=== PATIENT | male | born 1940 | race Caucasian/White ===

== ENCOUNTER 2017-04-16 15:58 | Inpatient (IN) | payer MEDICARE, OTHER ==
[~2017-04-16] VITALS: Ht 193 cm; Wt 81.6 kg
--- NOTE | 2017-04-16 16:16 | NUR ---
There was no information about pt's regular medications sent with the pt from the SNF, pt's daughter unable to provide info as well. Pt's daughter stated she will attempt to call her mother and the SNF to obtain information.
[2017-04-16] MEDS ORDERED: VANCOMYCIN IV 1,000 MG in IV DEXTROSE 5% 250 ML IV ONE (16:30)
[2017-04-16] MEDS ORDERED: CEFEPIME HCL 1 G in IV DEXTROSE 5% 50 ML IV ONE (16:30)
[2017-04-16] MEDS ORDERED: METRONIDAZOLE 500 MG/NS 100ML 100 ML IV ONE ×2 (16:30→16:55)
[2017-04-16] MEDS ORDERED: IV NORMAL SALINE 1000 ML BAG IV ONE (16:30)
[2017-04-16] MEDS ORDERED: VANCOMYCIN IV 200 ML ONE (16:55)
[2017-04-16 16:57] LABS: BASOPHILS % (AUTO) 0.2 % (0.0-2.0); EOSINOPHILS % (AUTO) 0.1 % (0.0-7.0); HEMATOCRIT 26.2 % (40-50); HEMOGLOBIN 8.5 G/DL (14.0-18.0); LYMPHOCYTES % (AUTO) 9.2 % (20.5-51.5); MEAN CORPUSCULAR HEMOGLOBIN 29.4 UUG (27.0-31.0); MEAN CORPUSCULAR HGB CONC 33 g/dL (32.0-37.0); MEAN CORPUSCULAR VOLUME 90.3 FL (82.0-92.0); MONOCYTES # (AUTO) 0.9 K/UL (0.1-1.30); MONOCYTES % (AUTO) 4.3 % (0.0-11.0); NEUTROPHILS # (AUTO) 18.7 K/UL (1.8-8.9); NEUTROPHILS % (AUTO) 86.2 % (38.5-71.5); PLATELET COUNT (AUTO) 364 K/UL (150-450)
[2017-04-16 17:10] LABS: WHITE BLOOD COUNT (AUTO) 21.6 K/UL (4.0-11.2)
[2017-04-16 17:20] LABS: ALANINE AMINOTRANSFERASE 40 U/L (16-63); ALKALINE PHOSPHATASE 65 U/L (50-136); ASPARTATE AMINOTRANSFERASE 17 U/L (15-37); BILIRUBIN,DIRECT 0.1 mg/dL (0.0-0.2); BILIRUBIN,TOTAL 0.4 mg/dL (0.2-1.0); CARBON DIOXIDE 19 mmol/L (21-32); CHLORIDE 103 mmol/L (98-107); CREATININE 2.9 mg/dL (0.6-1.3); POTASSIUM 5.1 mmol/L (3.5-5.1); TOTAL PROTEIN, SERUM 5.9 g/dL (6.4-8.2)
[2017-04-16 17:25] LABS: GLUCOSE 558 mg/dL (74-106); UREA NITROGEN, BLOOD 97 mg/dL (7-18)
--- NOTE | 2017-04-16 17:29 | NUR ---
Call placed to [facility] ( ) to obtain information about pt's regular medications, spoke with pt's primary nurse and requested she fax a current med list.
[2017-04-16 17:39] LABS: BAND % (MANUAL) 9 % (0-10); LYMPHOCYTES % (MANUAL) 8 % (20-40); MONOCYTES % (MANUAL) 7 % (2-10); NEUTROPHILS % (MANUAL) 76 % (42-75)
--- NOTE | 2017-04-16 17:45 | NUR ---
Patient is now verbal, eyes tracking, still disoriented to name, place or time. Patient is also unable to recognize his daughter at this time. MD notified.
[2017-04-16] MEDS ORDERED: GENTAMICIN SULFATE 20 MG/2 ML VIAL IV ONE (18:00)
[2017-04-16] MEDS ORDERED: GENTAMICIN SULFATE IV ONE (18:00)
[2017-04-16] MEDS ORDERED: NORMAL SALINE IV ONE (18:00)
[2017-04-16 18:09] LABS: *BLOOD, URINE 2+ (NEGATIVE); *CLARITY,URINE CLOUDY (CLEAR); *COLOR,URINE YELLOW (YELLOW); *KETONES,URINE NEGATIVE (NEGATIVE); NITRITE, URINE NEGATIVE (NEGATIVE); PH,URINE 7.5 (5.0-8.0); UGLUCOSE NEGATIVE (NEGATIVE)
[2017-04-16] MEDS ORDERED: POLY17PO4 PO (18:13)
[2017-04-16] MEDS ORDERED: BLOO-144 MC (18:13)
[2017-04-16] MEDS ORDERED: TAMS0.4C34 PO (18:13)
[2017-04-16] MEDS ORDERED: SENN-167 PO (18:13)
[2017-04-16] MEDS ORDERED: MULT1TAB11 PO (18:13)
[2017-04-16] MEDS ORDERED: CRAN450C PO (18:13)
[2017-04-16] MEDS ORDERED: QUET25TA PO (18:13)
[2017-04-16] MEDS ORDERED: INSU100V7 SQ (18:13)
[2017-04-16] MEDS ORDERED: WARF5TAB6 PO (18:13)
[2017-04-16] MEDS ORDERED: TRAZ-144 PO (18:13)
[2017-04-16] MEDS ORDERED: FURO-152 PO (18:13)
[2017-04-16] MEDS ORDERED: PRAV20TA4 PO (18:13)
[2017-04-16] MEDS ORDERED: FINA5TAB11 PO (18:13)
[2017-04-16] MEDS ORDERED: CHOL200026 PO (18:13)
[2017-04-16] MEDS ORDERED: METO25TA6 PO (18:13)
[2017-04-16] MEDS ORDERED: MAGN400O6 PO (18:14)
[2017-04-16] MEDS ORDERED: TRAM50TA2 PO (18:14)
[2017-04-16] MEDS ORDERED: CALAZIME TP (18:14)
[2017-04-16] MEDS ORDERED: COLL30OI TOP (18:14)
[2017-04-16] MEDS ORDERED: ACET325C PO (18:14)
[2017-04-16] MEDS ORDERED: DOCU-141 PO (18:14)
[2017-04-16] MEDS ORDERED: BISA10SU12 RC (18:14)
[2017-04-16] MEDS ORDERED: ACET325T53 PO (18:14)
[2017-04-16 18:35] LABS: *BILIRUBIN,URIN NEGATIVE (NEGATIVE); *PROTEIN,URINE 3+ (NEGATIVE)
[2017-04-16 18:36] LABS: LEUKOCYTE ESTERASE ,URINE 2+ (NEGATIVE)
[2017-04-16 18:38] LABS: BACTERIA,URINE MANY /HPF (NONE SEEN); TRIPLE PHOSPHATE CRYSTAL,UR MODERATE /HPF (NONE SEEN); WBC,URINE 80-100 /HPF (0-3)
--- NOTE | 2017-04-16 18:40 | NUR ---
Patient is resting comfortably on gurney with eyes closed, easily arousable, patient says "Hi" back when greeted but still confuse@this time, REYNALDO, respiration:easy, daughter is at bedside
--- NOTE | 2017-04-16 19:08 | NUR ---
IVF bolus is done, MD aware. IV Vanco is still infusing@right forearm, pending blood draw for repeat lactic acid, type & screen & accucheck, endorsed to MIREYA Breaux accordingly
--- NOTE | 2017-04-16 20:05 | NUR ---
Pt. admitted to [facility], under care of Dr. Story Belongs List completed
[2017-04-16 20:30] VITALS: BP 91/52
--- NOTE | 2017-04-16 21:00 | NUR ---
In from ER via gurney, 77 y/o male patient admitted to [facility] w/ Dx. Septic Shock. Daughter in room provided patient's information. Initial assessment done, patient coherent & slightly restless. Placed on site monitor- shows sinus tach 105-110, afebrile but BP low 91/52. Admission orders initiated by Dr. Story. Will continue to monitor.
[2017-04-16] MEDS ORDERED: ACETAMINOPHEN 650 MG SUPP.RECT RC PRN (21:30)
[2017-04-16] MEDS ORDERED: PHYTONADIONE 10 MG/1 ML AMPUL SQ ONE (21:30)
[2017-04-16] MEDS ORDERED: DEXTROSE 50% 50 ML DISP.SYRIN IV PRN (21:30)
[2017-04-16] MEDS: IV NS 1000 ML 1,000 ML IV PRN (21:44)
[2017-04-16] MEDS: PIPERACILLIN/TAZOBACTAM/D5W 2.25 G in PREMIXED 1 EACH IV SCH (21:54)
--- NOTE | 2017-04-16 22:00 | NUR ---
Zosyn 2.25 gm IVPB started as ordered. Patient calm at this time.
[2017-04-16] MEDS ORDERED: PIPERACILLIN/TAZO 2.25 GM VIAL ONE ×2 (22:03→23:25)
[2017-04-16] MEDS: INSULIN DETEMIR 300 UNIT/3 ML CARTRIDGE SQ SCH (22:30)
[2017-04-16] MEDS: Z GUARD REMEDY PASTE 57 GM TUBE TOP SCH (22:31)
[2017-04-16 23:20] VITALS: BP 77/43
--- NOTE | 2017-04-16 23:20 | NUR ---
Restlessness noted BP 77/43, O2Sat 67% on 4 Liter nasally. Closely monitored. Called Rapid response for further assessment.
[2017-04-16 23:30] VITALS: BP 67/26
--- NOTE | 2017-04-16 23:30 | NUR ---
Unable to get O2Sat, Current BP 67/26. Dr. Story notified.
--- NOTE | 2017-04-16 23:45 | NUR ---
Transferred to CCU per MD order.
[2017-04-16 23:55] VITALS: BP 94/55
[2017-04-16] MEDS: PHENYLEPHRINE IV 20 MG in IV DEXTROSE 5% 250 ML IV PRN (23:55)
--- NOTE | 2017-04-16 23:55 | NUR ---
RECEIVED PT TRANSFERED FROM -218 VIA BED W/ LOW BP., HUNG NEOSYNEPHRINE DRIP @ 100MCQ/MIN ORDERED ON LAC IV SITE.ON O2 @ 100% NRM W/ O2 SAT OF 100%. C-SCOPE ST W/ RARE PVCS. SOFT RESTRAINT APPLIED, PT PULLING OUT IVS & MEDICAL EQUIPMENT. WATCHED PT CLOSELY.
--- NOTE | 2017-04-16 23:55 | NUR ---
DAM TENDER ASSISTANT CALLED OVERHEAD, UPON ARRIVAL PT WAS PLACED ON A NON-REBREATHER WITH 100% FIO2. PT WAS TRANSFERRED TO CCU ON NON REBREATHER 100%. PT CURRENTLY IS ON NON-REBREATHER AT 100% FIO2, SP02 IS 100%. WILL CONTINUE TO MONITOR PT AND TITRATE O2 ACCORDINGLY.
[2017-04-17] VITALS (69 sets, daily range): BP systolic 78–139; BP diastolic 39–79
[2017-04-17] MEDS ORDERED: PHENYLEPHRINE 10 MG/1 ML VIAL ONE ×3 (00:01→06:11)
--- NOTE | 2017-04-17 00:10 | NUR ---
NOTIFIED DR Samuel JAIN RE: ACCUCHJOSE ROBERTO BLOOD SUGAR-[id number] W/ ORDER TO CONT. THE SLIDING SCALE COVERAGE ORDERED. Addendum: 04/17/17 at 0806 by PAT WILLIS RN -[phone].
[2017-04-17] MEDS: PHENYLEPHRINE IV 20 MG in IV DEXTROSE 5% 250 ML IV PRN ×5 (00:17→19:33)
[2017-04-17] MEDS: BLOOD SUGAR DIAGNOSTIC 1 EACH STRIP VI SCH ×5 (00:28→23:42)
[2017-04-17] MEDS: INSULIN REGULAR, HUMAN 300 UNIT/3 ML VIAL SQ PRN ×5 (00:47→23:44)
[2017-04-17] MEDS ORDERED: INSULIN REGULAR, HUMAN 300 UNIT/3 ML VIAL ONE ×2 (00:52→00:58)
[2017-04-17] MEDS: PIPERACILLIN/TAZOBACTAM/D5W 2.25 G in PREMIXED 1 EACH IV SCH ×4 (03:30→23:33)
[2017-04-17] MEDS: IV NS 1000 ML 1,000 ML IV PRN ×2 (04:31→23:34)
--- NOTE | 2017-04-17 05:00 | NUR ---
AM CARE DONE NO BM NOTED.
[2017-04-17 06:00] LABS: BASOPHILS # (AUTO) 0.1 K/uL (0.0-8.0); BASOPHILS % (AUTO) 0.2 % (0.0-2.0); EOSINOPHILS # (AUTO) 0.1 K/uL (0.0-0.7); EOSINOPHILS % (AUTO) 0.2 % (0.0-7.0); LYMPHOCYTES # (AUTO) 2.6 K/UL (0.8-4.8); LYMPHOCYTES % (AUTO) 9.9 % (20.5-51.5); MEAN CORPUSCULAR HEMOGLOBIN 30.1 UUG (27.0-31.0); MEAN CORPUSCULAR HGB CONC 33 g/dL (32.0-37.0); MEAN CORPUSCULAR VOLUME 90.2 FL (82.0-92.0); MONOCYTES # (AUTO) 1.5 K/UL (0.1-1.30); MONOCYTES % (AUTO) 5.6 % (0.0-11.0); NEUTROPHILS # (AUTO) 21.8 K/UL (1.8-8.9); NEUTROPHILS % (AUTO) 84.1 % (38.5-71.5); PLATELET COUNT (AUTO) 305 K/UL (150-450); WHITE BLOOD COUNT (AUTO) 26.1 K/UL (4.0-11.2)
[2017-04-17 06:06] LABS: HEMOGLOBIN 5.9 G/DL (14.0-18.0); RED BLOOD CELL COUNT(AUTO) 1.97 MIL/UL (4.7-6.1)
[2017-04-17 06:07] LABS: HEMATOCRIT 17.8 % (40-50)
--- NOTE | 2017-04-17 06:10 | NUR ---
DR Samuel BERNAL RE:HBG-5.9, HCT-17.8, BS-434 BY ACCUCHJOSE ROBERTO, LACTIC-8.8
--- NOTE | 2017-04-17 06:10 | NUR ---
ALL CRITICAL LABS REPORTED TO DR. Orlando JAIN W/ ORDERS. NS 500CC BOLUS GIVEN FOR LACTIC ACID-8.8.
[2017-04-17 06:21] LABS: ALANINE AMINOTRANSFERASE 37 U/L (16-63); ALKALINE PHOSPHATASE 51 U/L (50-136); ASPARTATE AMINOTRANSFERASE 19 U/L (15-37); BILIRUBIN,TOTAL 0.4 mg/dL (0.2-1.0); CARBON DIOXIDE 16 mmol/L (21-32); CHLORIDE 112 mmol/L (98-107); CREATININE 2.6 mg/dL (0.6-1.3); MAGNESIUM 1.7 mg/dL (1.8-2.4); PHOSPHOROUS 3.3 mg/dL (2.5-4.9); POTASSIUM 4.5 mmol/L (3.5-5.1); TOTAL PROTEIN, SERUM 4.9 g/dL (6.4-8.2)
[2017-04-17 06:28] LABS: GLUCOSE 496 mg/dL (74-106)
[2017-04-17 06:29] LABS: UREA NITROGEN, BLOOD 101 mg/dL (7-18)
[2017-04-17] MEDS ORDERED: IV NORMAL SALINE 500 ML IV ONE (06:30)
--- NOTE | 2017-04-17 06:30 | NUR ---
CALLED IVETT THE TO OBTAIN CONSENT OF BLOOD TRANSFUSIO & PICC LINE INSERTION, LEFT MESSAGE.
[2017-04-17 06:44] LABS: CHOLESTEROL 75 mg/dL (<200); HDL CHOLESTEROL 25 mg/dL (40-60); TRIGLYCERIDES 117 MG/DL (30-150)
--- NOTE | 2017-04-17 06:45 | NUR ---
Called family about patient's CCU transfer, but no one picked up the phone.
[2017-04-17] MEDS ORDERED: FAMOTIDINE. 20 MG/2 ML VIAL IV SCH (09:00)
[2017-04-17 09:15] LABS: IRON, SERUM 113 ug/dL (50-175)
[2017-04-17] MEDS ORDERED: PHENYLEPHRINE IV 80 MG in IV DEXTROSE 5% 250 ML IV PRN (10:00)
[2017-04-17] MEDS: FAMOTIDINE. 20 MG/2 ML VIAL IV SCH (10:50)
[2017-04-17] MEDS: Z GUARD REMEDY PASTE 57 GM TUBE TOP SCH ×2 (10:51→20:54)
[2017-04-17 12:11] LABS: BAND % (MANUAL) 5 % (0-10); LYMPHOCYTES % (MANUAL) 8 % (20-40); METAMYELOCYTES % 3 % (0-1); MONOCYTES % (MANUAL) 8 % (2-10); NEUTROPHILS % (MANUAL) 76 % (42-75)
[2017-04-17] MEDS: LORAZEPAM 2 MG/1 ML VIAL IV PRN (13:47)
[2017-04-17] MEDS ORDERED: MAGNESIUM SULFATE/D5W 100 ML IV SCH (14:45)
[2017-04-17 18:03] LABS: BASOPHILS # (AUTO) 0.1 K/uL (0.0-8.0); BASOPHILS % (AUTO) 0.3 % (0.0-2.0); EOSINOPHILS # (AUTO) 0.1 K/uL (0.0-0.7); EOSINOPHILS % (AUTO) 0.2 % (0.0-7.0); HEMOGLOBIN 7.7 G/DL (14.0-18.0); LYMPHOCYTES # (AUTO) 3.1 K/UL (0.8-4.8); LYMPHOCYTES % (AUTO) 10.4 % (20.5-51.5); MEAN CORPUSCULAR HGB CONC 33 g/dL (32.0-37.0); MEAN CORPUSCULAR VOLUME 90.7 FL (82.0-92.0); MONOCYTES # (AUTO) 2.3 K/UL (0.1-1.30); MONOCYTES % (AUTO) 7.9 % (0.0-11.0); NEUTROPHILS % (AUTO) 81.2 % (38.5-71.5); PLATELET COUNT (AUTO) 187 K/UL (150-450); RED BLOOD CELL COUNT(AUTO) 2.57 MIL/UL (4.7-6.1); WHITE BLOOD COUNT (AUTO) 29.6 K/UL (4.0-11.2)
[2017-04-17 18:09] LABS: CARBON DIOXIDE 21 mmol/L (21-32); CHLORIDE 116 mmol/L (98-107); CREATININE 1.6 mg/dL (0.6-1.3); GLUCOSE 232 mg/dL (74-106); POTASSIUM 3.6 mmol/L (3.5-5.1)
[2017-04-17 18:12] LABS: UREA NITROGEN, BLOOD 82 mg/dL (7-18)
[2017-04-17 18:22] LABS: HEMATOCRIT 23.3 % (40-50)
[2017-04-17 18:56] LABS: BAND % (MANUAL) 18 % (0-10); LYMPHOCYTES % (MANUAL) 11 % (20-40); METAMYELOCYTES % 1 % (0-1); MONOCYTES % (MANUAL) 6 % (2-10); MYELOCYTES % 1 % (0-0); NEUTROPHILS % (MANUAL) 63 % (42-75)
[2017-04-17] MEDS: INSULIN DETEMIR 300 UNIT/3 ML CARTRIDGE SQ SCH (20:54)
--- NOTE | 2017-04-17 20:55 | NUR ---
Held Levemir at 2100. Glucose is elevated at 168, however patient is NPO. Next accu-check to be done at 0000 and Q6HR with humulin coverage. Will continue to monitor.
--- NOTE | 2017-04-17 22:00 | NUR ---
Notified Dr. Story of continued critically low Hgb/Hct post transfusion of 2 units PRBCs. Received order to transfuse 1 additional unit PRBCs now.
[2017-04-18] VITALS (28 sets, daily range): BP systolic 94–162; BP diastolic 38–81
[2017-04-18] MEDS: LORAZEPAM 2 MG/1 ML VIAL IV PRN ×3 (00:37→20:30)
--- NOTE | 2017-04-18 01:30 | NUR ---
Transfused 1 unit PRBCs as ordered. No adverse reactions
[2017-04-18 04:57] LABS: BASOPHILS # (AUTO) 0.1 K/uL (0.0-8.0); BASOPHILS % (AUTO) 0.2 % (0.0-2.0); EOSINOPHILS # (AUTO) 0.2 K/uL (0.0-0.7); EOSINOPHILS % (AUTO) 0.7 % (0.0-7.0); HEMOGLOBIN 7.8 G/DL (14.0-18.0); LYMPHOCYTES # (AUTO) 3.7 K/UL (0.8-4.8); LYMPHOCYTES % (AUTO) 12.1 % (20.5-51.5); MEAN CORPUSCULAR HEMOGLOBIN 28.5 UUG (27.0-31.0); MEAN CORPUSCULAR HGB CONC 33 g/dL (32.0-37.0); MEAN CORPUSCULAR VOLUME 86.8 FL (82.0-92.0); MONOCYTES # (AUTO) 2.2 K/UL (0.1-1.30); MONOCYTES % (AUTO) 7.1 % (0.0-11.0); NEUTROPHILS # (AUTO) 24.5 K/UL (1.8-8.9); NEUTROPHILS % (AUTO) 79.9 % (38.5-71.5); PLATELET COUNT (AUTO) 168 K/UL (150-450); RED BLOOD CELL COUNT(AUTO) 2.75 MIL/UL (4.7-6.1)
[2017-04-18 05:04] LABS: WHITE BLOOD COUNT (AUTO) 30.7 K/UL (4.0-11.2)
[2017-04-18 05:05] LABS: HEMATOCRIT 23.9 % (40-50)
[2017-04-18] MEDS: PIPERACILLIN/TAZOBACTAM/D5W 2.25 G in PREMIXED 1 EACH IV SCH ×4 (05:05→22:25)
[2017-04-18 05:10] LABS: ALANINE AMINOTRANSFERASE 51 U/L (16-63); ALKALINE PHOSPHATASE 44 U/L (50-136); ASPARTATE AMINOTRANSFERASE 43 U/L (15-37); BILIRUBIN,TOTAL 0.9 mg/dL (0.2-1.0); CARBON DIOXIDE 21 mmol/L (21-32); CHLORIDE 119 mmol/L (98-107); CREATININE 1.4 mg/dL (0.6-1.3); GLUCOSE 264 mg/dL (74-106); MAGNESIUM 1.8 mg/dL (1.8-2.4); PHOSPHOROUS 2.1 mg/dL (2.5-4.9); POTASSIUM 3.6 mmol/L (3.5-5.1); TOTAL PROTEIN, SERUM 4.4 g/dL (6.4-8.2); UREA NITROGEN, BLOOD 69 mg/dL (7-18)
[2017-04-18 05:46] LABS: BAND % (MANUAL) 2 % (0-10); EOSINOPHILS % (MANUAL) 1 % (0-8); LYMPHOCYTES % (MANUAL) 12 % (20-40); MONOCYTES % (MANUAL) 6 % (2-10); NEUTROPHILS % (MANUAL) 79 % (42-75)
[2017-04-18] MEDS: BLOOD SUGAR DIAGNOSTIC 1 EACH STRIP VI SCH ×4 (06:08→23:40)
[2017-04-18] MEDS: INSULIN REGULAR, HUMAN 300 UNIT/3 ML VIAL SQ PRN ×4 (06:09→23:42)
--- NOTE | 2017-04-18 07:20 | NUR ---
report received from Sanjeev RODRIGUEZ.77 yr old male whoa admitted on 03/1817 for septic shock. Patient was admitted at first to [facility] at 2100 and was transferred to CCU at 2300 same night. off levophed snce 9pm last night.Patient had been sleeping but restless.donohue catheter in place, urine is adequate. ekg sinus tachycardia. Addendum: 04/18/17 at 1150 by VALENTINE SALAZAR RN Amended: Links added.
[2017-04-18] MEDS: Z GUARD REMEDY PASTE 57 GM TUBE TOP SCH ×2 (09:17→20:28)
[2017-04-18] MEDS: FAMOTIDINE. 20 MG/2 ML VIAL IV SCH (09:17)
--- NOTE | 2017-04-18 10:33 | NUR ---
Presley, patient's son called for condition report. Addendum: 04/18/17 at 1033 by VALENTINE SALAZAR RN Amended: Links added.
--- NOTE | 2017-04-18 11:00 | NUR ---
seen by dr horta. talked to the family member at the bedside. orders received for blood transfusion. 1 unit started at 1413 and complerted at 1630 Addendum: 04/18/17 at 190 by VALENTINE SALAZAR RN Amended: Links added. Addendum: 04/18/17 at 1903 by VALENTINE SALAZAR RN Amended: Links added.
--- NOTE | 2017-04-18 11:00 | NUR ---
seen by dr horta. talked to the family member at the bedside. orders received for blood transfusion. 1 unit started at 1413 and complerted at 1630 Addendum: 04/18/17 at 1903 by VALENTINE SALAZAR RN Amended: Links added.
[2017-04-18] MEDS: INSULIN DETEMIR 300 UNIT/3 ML CARTRIDGE SQ SCH ×2 (11:23→21:14)
[2017-04-18] MEDS: POTASSIUM PHOSPHATE MM 5 MMOL in IV DEXTROSE 5% 100 ML IV SCH ×2 (11:26→14:13)
[2017-04-18] MEDS: PANTOPRAZOLE SODIUM 40 MG VIAL IV SCH ×2 (13:18→20:27)
[2017-04-18] MEDS: IV NS 1000 ML 1,000 ML IV PRN (13:53)
--- NOTE | 2017-04-18 14:00 | NUR ---
seen by Sonya Tiwari NP for GI. orders received. SCRAP WHEELER talked to family member. sandostatin drip started and scds removed. ngt inserted via right nare/ placement checked with JAY. ngt connected to low intermittent suction, no ngt output Addendum: 04/18/17 at 1858 by VALENTINE SALAZAR RN Amended: Links added. Addendum: 04/18/17 at 1901 by VALENTINE SALAZAR RN Amended: Links added. Addendum: 04/18/17 at 1903 by VALENTINE SALAZAR RN Amended: Links added.
--- NOTE | 2017-04-18 15:10 | NUR ---
WOUND CARE CONSULT: PT PRESENTS WITH STAGE 2 ULCER TO SACRUM, PRESENT ON ADMISSION. RECOMMENDATIONS MADE FOR SKIN PROTECTION AND WOUND CARE. DISCUSSED WITH NURSING STAFF. FIRST STEP MATTRESS ORDERED. ALL SKIN PROTECTION MEASURES IN PLACE. WILL SEE PRN. BROOKS IN AGREEMENT WITH PLAN OF CARE. Addendum: 04/18/17 at 1512 by RAFAEL SOUTH RN Amended: Links added.
--- NOTE | 2017-04-18 15:42 | NUR ---
77 YEAR OLD MALE ADMITTED DUE TO DECREASED RESPONSIVENESS W/ DX OF SEPTIC SHOCK PT IS NPO X 2 DAYS PT'S FAMILY DECIDED TO GO W/ COMFORT MEASURES ONLY RD WILL F/U IF AND WHEN NEEDED Addendum: 04/19/17 at [address] Amended: Links added.
[2017-04-18] MEDS: OCTREOTIDE ACETATE DRIP 1,250 MCG in IV NORMAL SALINE 247.5 ML IV PRN (18:30)
--- NOTE | 2017-04-18 19:25 | NUR ---
report given to Ananda Addendum: 04/18/17 at 1926 by VALENITNE SALAZAR RN Amended: Links added.
--- NOTE | 2017-04-18 20:00 | NUR ---
RECEIVED PT RESTING QUITELY. ON O2 @ 2LNC W/ O2 SAT OF 98%. IVF NS @ 80CC/HR ON LIGIA PICC LINE. ON SANDOSTATIN DRIP @ 50MCQ/HR. C-SCOPE ST W/ RARE PVCS. BP STABLE. NGT INTACT TO LOW INTERMITENT SUCTION, NO DRAINAGE NOTED. KEPT HOB ELEVATED.
[2017-04-18] MEDS ORDERED: FAMOTIDINE. 20 MG/2 ML VIAL IV SCH (21:00)
--- NOTE | 2017-04-18 21:00 | NUR ---
PT. HAD LARGE BLACKISH LIQUID STOOL. BEDBATH GIVEN & COMLPTE LINEN CHANGED. REPOSITIONED ON HIS SIDE W/ HOB ELEVATED. PT REMAINS AGITATED, MEDICATED W/ ATIVAN 0.5MG IVP GIVEN PRN ORDER.
[2017-04-18] MEDS: MUPIROCIN 2% OINT 22 GM TUBE NS SCH (21:04)
[2017-04-18] MEDS ORDERED: MUPIROCIN 2% OINT 22 GM TUBE NS SCH (21:15)
[2017-04-18] MEDS: METRONIDAZOLE 500 MG/NS 100ML 500 MG in PREMIXED 1 EACH IV SCH (21:44)
[2017-04-19] VITALS (21 sets, daily range): BP systolic 97–142; BP diastolic 43–99
--- NOTE | 2017-04-19 | NUR ---
AFEBRILE. BP STABLE. O2 SAT ADEQ, ON O2 @2LNC. REPOSITIONED W/ HOB ELEVATED.
[2017-04-19] MEDS: LORAZEPAM 2 MG/1 ML VIAL IV PRN (02:59)
[2017-04-19 03:43] LABS: *OCCULT BLOOD STOOL POSITIVE (NEGATIVE)
[2017-04-19] MEDS: IV NS 1000 ML 1,000 ML IV PRN (03:54)
--- NOTE | 2017-04-19 04:00 | NUR ---
AM CARE DONE. ORAL CARE DONE. REPOSITIONED ON HIS SIDE W/ HOB ELEVATED.
[2017-04-19] MEDS: PIPERACILLIN/TAZOBACTAM/D5W 2.25 G in PREMIXED 1 EACH IV SCH ×2 (04:24→10:29)
[2017-04-19 05:02] LABS: BASOPHILS # (AUTO) 0.1 K/uL (0.0-8.0); BASOPHILS % (AUTO) 0.3 % (0.0-2.0); EOSINOPHILS # (AUTO) 0.1 K/uL (0.0-0.7); EOSINOPHILS % (AUTO) 0.5 % (0.0-7.0); LYMPHOCYTES # (AUTO) 4.6 K/uL (20.0-40.0); LYMPHOCYTES % (AUTO) 16.2 % (20.5-51.5); MEAN CORPUSCULAR HEMOGLOBIN 29.6 uug (23.8-33.4); MEAN CORPUSCULAR HGB CONC 33 g/dL (32.5-36.3); MEAN CORPUSCULAR VOLUME 89.3 fL (73.0-96.2); MONOCYTES # (AUTO) 2.9 K/uL (2.0-10.0); MONOCYTES % (AUTO) 10.1 % (0.0-11.0); NEUTROPHILS # (AUTO) 20.6 K/uL (1.8-8.9); NEUTROPHILS % (AUTO) 72.9 % (38.5-71.5); PLATELET COUNT (AUTO) 145 K/uL (152-348); WHITE BLOOD COUNT (AUTO) 28.3 K/uL (3.6-10.2)
[2017-04-19 05:04] LABS: ALANINE AMINOTRANSFERASE 54 U/L (16-63); ALKALINE PHOSPHATASE 46 U/L (50-136); ASPARTATE AMINOTRANSFERASE 42 U/L (15-37); BILIRUBIN,TOTAL 0.6 mg/dL (0.2-1.0); CARBON DIOXIDE 24 mmol/L (21-32); CREATININE 1.3 mg/dL (0.6-1.3); GLUCOSE 130 mg/dL (74-106); POTASSIUM 3.4 mmol/L (3.5-5.1); TOTAL PROTEIN, SERUM 4.3 g/dL (6.4-8.2); UREA NITROGEN, BLOOD 53 mg/dL (7-18)
[2017-04-19 05:17] LABS: RED BLOOD CELL COUNT(AUTO) 2.35 MIL/uL (4.06-5.63)
[2017-04-19] MEDS: METRONIDAZOLE 500 MG/NS 100ML 500 MG in PREMIXED 1 EACH IV SCH (05:30)
[2017-04-19 05:34] LABS: CHLORIDE 128 mmol/L (98-107)
[2017-04-19] MEDS: BLOOD SUGAR DIAGNOSTIC 1 EACH STRIP VI SCH ×2 (05:36→11:20)
[2017-04-19 06:13] LABS: BAND % (MANUAL) 13 % (0-10); LYMPHOCYTES % (MANUAL) 14 % (20-40); METAMYELOCYTES % 3 % (0-1); MYELOCYTES % 3 % (0-0); NEUTROPHILS % (MANUAL) 67 % (42-75)
[2017-04-19] MEDS ORDERED: IV D5W 1000ML 1,000 ML IV PRN (06:15)
--- NOTE | 2017-04-19 06:30 | NUR ---
DR JAIN CALLED BACK FOR ORDERS. RICK D5W @ 100CC/HR.
--- NOTE | 2017-04-19 07:05 | NUR ---
Report received from [facility], 77yr male patient was admitted on 04/16/17, for septic shock. patient remains nonverbal, restless, on 02 2l nc, IV fluid D5W at 100ml/hr, sandostatin drip at 50mcg/hr. Both IV fluids infusing via jeff PICCline.donohue catheter intact with adequate urine output. ekg is sinus rhythm Addendum: 04/19/17 at 0819 by VALENTINE SALAZAR RN Amended: Links added.
--- NOTE | 2017-04-19 07:31 | NUR ---
Blood transfusion of prbcs started via right upper arm piccline Addendum: 04/19/17 at 0731 by VALENTINE SALAZAR RN Amended: Links added.
[2017-04-19] MEDS ORDERED: NORMAL SALINE FLUSH 10 ML DISP.SYRIN IV PRN ×2 (08:30→15:00)
--- NOTE | 2017-04-19 08:48 | NUR ---
seen by ramos whitaker orders Addendum: 04/19/17 at 0848 by VALENTINE SALAZAR RN Amended: Dharmesh arora. Addendum: 04/19/17 at 0849 by VALENTINE SALAZAR RN Amended: Dharmesh arora.
--- NOTE | 2017-04-19 08:49 | NUR ---
ultrasound of lower extremeities done at the bedside/ Addendum: 04/19/17 at 0849 by VALENTINE SALAZAR RN Amended: Links added.
[2017-04-19] MEDS: INSULIN DETEMIR 300 UNIT/3 ML CARTRIDGE SQ SCH (08:55)
[2017-04-19] MEDS: PANTOPRAZOLE SODIUM 40 MG VIAL IV SCH (08:56)
[2017-04-19] MEDS: MUPIROCIN 2% OINT 22 GM TUBE NS SCH (08:57)
[2017-04-19] MEDS: Z GUARD REMEDY PASTE 57 GM TUBE TOP SCH (08:57)
--- NOTE | 2017-04-19 10:48 | NUR ---
Ana haley. condition report given Addendum: 04/19/17 at 1049 by VALENTINE SALAZAR RN Amended: Links added.
[2017-04-19] MEDS: OCTREOTIDE ACETATE DRIP 1,250 MCG in IV NORMAL SALINE 247.5 ML IV PRN (11:11)
[2017-04-19] MEDS: INSULIN REGULAR, HUMAN 300 UNIT/3 ML VIAL SQ PRN (11:26)
--- NOTE | 2017-04-19 11:30 | NUR ---
Annamarie 147, covered with 2 units humulin R SQ Addendum: 04/19/17 at 1130 by VALENTINE SALAZAR RN Amended: Links added.
--- NOTE | 2017-04-19 12:51 | NUR ---
DR Story here and had family conference with patients and son and daughter. comfort measures and morphine drip ordered. family members came back and allowed to spend time with patient Addendum: 04/19/17 at 1251 by VALENTINE SALAZAR RN Amended: Links added.
[2017-04-19] MEDS: MORPHINE SULFATE PF IV DRIP 250 MG in IV DEXTROSE 5% 240 ML IV PRN ×2 (13:47→16:24)
--- NOTE | 2017-04-19 13:57 | NUR ---
Morphine drip started at 1mg/hr IV via right upper arm PICC line Addendum: 04/19/17 at 1357 by VALENTINE SALAZAR RN Amended: Links added.
[2017-04-19] MEDS ORDERED: PIPERACILLIN/TAZOBACTAM/D5W 3.375 G in PREMIXED 1 EACH IV SCH (14:00)
[2017-04-19] MEDS ORDERED: NORMAL SALINE FLUSH 10 ML DISP.SYRIN IV SCH (14:00)
--- NOTE | 2017-04-19 14:57 | NUR ---
pm care done. patient restless. Morphine drip titrated. now at 5mg/hr Addendum: 04/19/17 at 1457 by VALENTINE SALAZAR RN Amended: Links added.
--- NOTE | 2017-04-19 15:18 | NUR ---
Call to Dr. Story re: continued restlessness despite Morphine 15mg/hr drip Addendum: 04/19/17 at 1518 by VALENTINE SALAZAR RN Amended: Links added.
--- NOTE | 2017-04-19 16:14 | NUR ---
talked to Dr horta. orders received to increase morphine max rate and also to add ativan IV push prn Addendum: 04/19/17 at 1614 by VALENTINE SALAZAR RN Amended: Links added.
[2017-04-19] MEDS ORDERED: MORPHINE SULFATE PF IV DRIP 250 MG in IV DEXTROSE 5% 240 ML IV PRN (16:15)
[2017-04-19] MEDS ORDERED: LORAZEPAM 2 MG/1 ML VIAL IV PRN (16:15)
--- NOTE | 2017-04-19 16:30 | NUR ---
finally sleeping and calmed down. morphine drip now being titrated down to optimal comfort level. family left for the day. Addendum: 04/19/17 at 1830 by VALENTINE SALAZAR RN Amended: Links added.
--- NOTE | 2017-04-19 19:13 | NUR ---
Report given to Javi. Addendum: 04/19/17 at 1913 by VALENTINE SALAZAR RN Amended: Links added.
--- NOTE | 2017-04-19 19:37 | NUR ---
Patient is resting, appears comfortable. Morphine drip at rate of 5mg/hr. Will continue to monitor and titrate drip as appropriate for comfort. Contact isolation precaution maintained. Rome catheter intact. On 1st step mattress. PICC to MANJULA, klye. SBAR report received from Shola Patel RN. Will continue plan of care.
--- NOTE | 2017-04-19 20:00 | NUR ---
Dr. Ramirez at bedside for assessment. Update given that code status was changed to comfort measures only.
[2017-04-19] MEDS: NORMAL SALINE FLUSH 10 ML DISP.SYRIN IV SCH (22:43)
[2017-04-20 00:18] VITALS: BP 62/39
[2017-04-20 04:00] VITALS: BP 57/38
[2017-04-20] MEDS: NORMAL SALINE FLUSH 10 ML DISP.SYRIN IV SCH (06:03)
--- NOTE | 2017-04-20 06:40 | NUR ---
Patient apneic for 5 minutes Pupils fixed No audible heart tones and breath sounds No palpable pulses and corneal reflexes Pronounced at 0635.
--- NOTE | 2017-04-20 06:45 | NUR ---
Notified next of kin, Pratibha Pires, of patient passing. gave consent to inform son, Presley Pires, of and to gather information regarding mortuary arrangements. Spoke to Presley Pires. No confirmed arrangements at this time. Will endorse to day shift. Endorsed to Production Broaching Machine Operator, Christel Reid.
--- NOTE | 2017-04-20 06:50 | NUR ---
Toney notified of patient . Spoke with Sandy, case #[id number]
--- NOTE | 2017-04-20 07:05 | NUR ---
RECIEVED REPORT FRON LEASING MANAGER. PT'S BODY STILL IN THE ROOM. FAMILY NOTIFIED.
--- NOTE | 2017-04-20 07:24 | NUR ---
NOTIFIED DR ALVAREZ OF PT'S TIME OF .
--- NOTE | 2017-04-20 07:45 | NUR ---
POST MORTEM CARE DONE AND PT PLACED ON POST KIT BODY BAG.
--- NOTE | 2017-04-20 08:40 | NUR ---
DAUGHTER AND GRANCHILD CAME IN TO VIEW THE BODY. FAMILY STILL MAKING MORTUARY ARRANGEMENT. FAMILY AWARE THAT PT'S BODY WILL BE STORED IN THE [place].
--- NOTE | 2017-04-20 09:25 | NUR ---
PT'S BODY BROUGHT DOWN TO THE [place]. INSPECTOR WEIGHTS AND MEASURES AWARE.
== END 2017-04-20 06:35 | disposition expired | DRG 871 ==
LOC: ER 16:00 → DOU 19:59 → TELE-TD 20:45 → CCU 23:40
PROVIDERS: ADMIT Internal Medicine; ATTEND Internal Medicine
PROC: 30233N1 Transfusion of Nonautologous Red Blood Cells into Peripheral Vein, Percutaneous Approach (ICD-10-PCS; principal; 2017-04-17)
PROC: 02HV33Z Insertion of Infusion Device into Superior Vena Cava, Percutaneous Approach (ICD-10-PCS; 2017-04-17)
PROC: B548ZZA Ultrasonography of Superior Vena Cava, Guidance (ICD-10-PCS; 2017-04-17)
DX: A41.9 Sepsis, unspecified organism (principal); N17.0 Acute kidney failure with tubular necrosis; I21.A1 Myocardial infarction type 2; E43 Unspecified severe protein-calorie malnutrition; R65.21 Severe sepsis with septic shock; D68.59 Other primary thrombophilia; G92 Toxic encephalopathy; Z51.5 Encounter for palliative care; Z66 Do not resuscitate; D68.32 Hemorrhagic disorder due to extrinsic circulating anticoagulants; E11.22 Type 2 diabetes mellitus with diabetic chronic kidney disease; E87.2 Acidosis; K92.1 Melena; N39.0 Urinary tract infection, site not specified; F32.3 Major depressive disorder, single episode, severe with psychotic features; E87.0 Hyperosmolality and hypernatremia; E11.65 Type 2 diabetes mellitus with hyperglycemia; F03.90 Unspecified dementia, unspecified severity, without behavioral disturbance, psychotic disturbance, mood disturbance, and anxiety; B96.4 Proteus (mirabilis) (morganii) as the cause of diseases classified elsewhere; R80.9 Proteinuria, unspecified; Z79.4 Long term (current) use of insulin; Z22.322 Carrier or suspected carrier of Methicillin resistant Staphylococcus aureus; G89.29 Other chronic pain; Z68.21 Body mass index [BMI] 21.0-21.9, adult; T45.515A Adverse effect of anticoagulants, initial encounter; Y92.129 Unspecified place in nursing home as the place of occurrence of the external cause; I12.9 Hypertensive chronic kidney disease with stage 1 through stage 4 chronic kidney disease, or unspecified chronic kidney disease; N18.9 Chronic kidney disease, unspecified; Z86.718 Personal history of other venous thrombosis and embolism; Z79.01 Long term (current) use of anticoagulants; D50.0 Iron deficiency anemia secondary to blood loss (chronic); E78.5 Hyperlipidemia, unspecified; N40.0 Benign prostatic hyperplasia without lower urinary tract symptoms; Z79.899 Other long term (current) drug therapy; Z87.891 Personal history of nicotine dependence; K59.00 Constipation, unspecified; Z84.89 Family history of other specified conditions; Z90.49 Acquired absence of other specified parts of digestive tract
CPT/HCPCS: 36415; 70030-TC; 70450; 71010; 74000; 82378; 83550; 83605; 83735; 84100; 84443; 85025; 85610; 85730; 86850; 86900; 86901; 86920; 87040; 87077; 87086; 93005; 93307; A4663; C9113; J0692; J1580; J1815; J2060; J2274; J2354; J2370; J2543; J3370; J3430; J3475; J3490; J7030; J7040; J7050; J7060; J7070; P9016-BL; P9021